=== PATIENT | male | born 1940 | race Caucasian/White ===

== ENCOUNTER 2022-05-07 13:13 | Emergency (ER) | payer MEDICARE ==
[~2022-05-07] VITALS: Ht 182 cm; Wt 80.0 kg
[2022-05-07 13:45] VITALS: BP 153/82
--- NOTE | 2022-05-07 14:02 | ED EENT ---
History of Present Illness General Chief Complaint: Laceration Stated Complaint: LT EAR WOUND Nursing Triage Note: Patient has presented to ER with cc of a wound behind his left ear oozing blood. He reports that yesterday he had a cancera area removed, he was told to change the dressing today. This morning when he changed the dressing the wound kept oozing blood. He came to ER for evaluation. He had a band aid over the wound with some blood under the dresing. Source: patient Exam Limitations: no limitations History of Present Illness Date Seen by Provider: May 07, 2022 Time Seen by Provider: 13:15 Initial Comments Patient is a 81-year-old male who presents with bleeding postsurgical left your wound. 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 Bleeding has subsequently stopped. Patient is not on aspirin or anticoagulation therapy. No other symptoms or complaints. Timing/Duration: abrupt Severity: mild Location: ear (L) Prearrival Treatment: other Modifying Factors: Improves With Other Allergies and Home Medications Patient Home Medication List Home Medication List Reviewed: Yes Review of Systems Review of Systems Constitutional: see HPI Ears: See HPI Past Ipsspie-Wdafko-Ubysay Hx Patient Social History Tobacco Use?: No Use of E-Cig and/or Vaping dev: No Substance use?: No Alcohol Use?: No Visual Acuity : Eye Location: Left Physical Exam Vital Signs Vital Signs - First Documented 05/07/22 13:45 Temp 36.2 Pulse 77 Resp 16 B/P (MAP) 153/82 (105) Pulse Ox 95 O2 Delivery Room Air Height, Weight, BMI Height: '" Weight: lbs. oz. kg; 24.00 BMI Method: General Appearance: no apparent distress Eyes: bilateral eye normal inspection, bilateral eye PERRL Ears: left ear auricle normal (Left upper inner earlobe, shallow surgical excision without active bleeding or evidence of infection), left ear bleeding, left ear discharge, left ear erythema, left ear foreign body, left ear swelling, left ear tenderness, left ear TM dull, left ear TM red, left ear TM bulging, left ear TM perforation, left ear other; bilateral ear canal normal, bilateral ear TM normal Progress/Results/Core Measures Results/Orders Vital Signs/I&O 05/07/22 13:45 Temp 36.2 Pulse 77 Resp 16 B/P (MAP) 153/82 (105) Pulse Ox 95 O2 Delivery Room Air Blood Pressure Mean: 105 Departure Communication (Admissions) Bleeding stopped prior to ED arrival. Patient reassured. Recommendations are watchful waiting and PCP follow-up as needed Impression Primary Impression: Abrasion of left ear Disposition: HOME, SELF-CARE Condition: Stable Departure-Patient Inst. Decision time for Depature: 14:01 Referrals: URBANO SCHULZ MD (PCP) Primary Care Physician Patient Instructions: Abrasions ED Add. Discharge Instructions: Please keep wound clean and dry and avoid bandage changes for the next 2 to 3 days. Follow-up with your surgeon as needed. All discharge instructions reviewed with patient and/or family. Voiced understanding. BARNEY HAWK DO May 07, 2022 14:02
== END 2022-05-07 14:08 | disposition home or self-care (01) ==
LOC: EDUNIT# 13:13 → ER FS 13:15
DX: S00.412A Abrasion of left ear, initial encounter (principal); Z48.817 Encounter for surgical aftercare following surgery on the skin and subcutaneous tissue; X58.XXXA Exposure to other specified factors, initial encounter

== ENCOUNTER 2022-09-18 16:23 | Emergency (ER) | payer MEDICARE ==
[~2022-09-18] VITALS: Ht 182.9 cm; Wt 79.4 kg
[2022-09-18 16:41] LABS: HEMATOCRIT 47 % (40-54); HEMOGLOBIN 15.5 g/dL (13.3-17.7); LYMPHOCYTES % (AUTO) 14 % (12-44); MEAN CORPUSCULAR HEMOGLOBIN 31 pg (25-34); MEAN CORPUSCULAR HGB CONC 33 g/dL (32-36); MEAN CORPUSCULAR VOLUME 93 fL (80-99); MEAN PLATELET VOLUME 9.6 fL (9.0-12.2); MONOCYTES % (AUTO) 4 % (0-12); NEUTROPHILS % (AUTO) 80 % (42-75); PLATELET COUNT 285 10^3/uL (130-400); WHITE BLOOD COUNT 15.3 10^3/uL (4.3-11.0)
[2022-09-18 16:42] LABS: BASOPHILS # (AUTO) 0.1 10^3/uL (0.0-0.1); BASOPHILS % (AUTO) 1 % (0-10); EOSINOPHILS # (AUTO) 0.2 10^3/uL (0.0-0.3); EOSINOPHILS % (AUTO) 2 % (0-10); LYMPHOCYTES # (AUTO) 2.2 X 10^3 (1.0-4.0); MONOCYTES # (AUTO) 0.6 X 10^3 (0.0-1.0); NEUTROPHILS # (AUTO) 12.2 X 10^3 (1.8-7.8)
[2022-09-18 16:45] LABS: CALCIUM 9.2 MG/DL (8.5-10.1); CREATININE SERUM 0.76 MG/DL (0.60-1.30); POTASSIUM 4.9 MMOL/L (3.6-5.0)
[2022-09-18 16:47] LABS: NEUTROPHILS % (MANUAL) 78 %
[2022-09-18 16:48] LABS: EOSINOPHILS % (MANUAL) 4 %; LYMPHOCYTES % (MANUAL) 15 %; MONOCYTES % (MANUAL) 3 %
--- NOTE | 2022-09-18 17:09 | ED GI ---
General Chief Complaint: Abdominal/GI Problems Nursing Triage Note: Patient brought to the ED by EMS for chief complaint of nausea/vomiting. Patient reports he got up to go to the bathroom, became nauseous, and sat down. EMS states patient vomited once en route to the ED. Source of Information: Patient Exam Limitations: No Limitations History of Present Illness Date Seen by Provider: Sep 18, 2022 Time Seen by Provider: 16:24 Initial Comments 82-year-old male presents to the emergency room today via EMS for nausea. He got up to go to the restroom and got a little lightheaded. He then had some nausea. He leaned against the wall and did not fall down. He called firefighters who had him up and about by the time the paramedics arrived. He decided to come to get checked out. He had a single episode of nausea and vomiting in the ambulance. He was given 4 mg Zofran IV and has had no recurrence of his symptoms. On arrival he states he feels better after he vom ited. He denies any abdominal pain or recent illnesses. No medication changes. No sick contacts. All other systems reviewed and negative except documented per HPI. Voice recognition software was used to help create this chart Allergies and Home Medications Allergies Coded Allergies: No Known Drug Allergies (Unverified , 09/18/22) Patient Home Medication List Home Medication List Reviewed: Yes Review of Systems Review of Systems Constitutional: see HPI Past Otmpkme-Mvjjgx-Cdumos Hx Patient Social History Tobacco Use?: No Substance use?: No Alcohol Use?: No Pt feels they are or have been: No Past Medical History Surgery/Hospitalization HX: asthma Family Medical History Reviewed Nursing Family Hx No Pertinent Family Hx Physical Exam Vital Signs Vital Signs - First Documented 09/18/22 16:33 Temp 36.9 Pulse 78 Resp 18 B/P (MAP) 163/69 (100) Pulse Ox 98 O2 Delivery Room Air Capillary Refill : Less Than 3 Seconds Height/Weight/BMI Height: '" Weight: lbs. oz. kg; 23.00 BMI Method: General Appearance: WD/WN, no apparent distress HEENT: normal ENT inspection, pharynx normal Neck: non-tender, supple Respiratory: chest non-tender, lungs clear, normal breath sounds, no respiratory distress, no accessory muscle use Cardiovascular: regular rate, rhythm, no murmur Gastrointestinal: normal bowel sounds, non tender, soft, no organomegaly, no pulsatile mass Extremities: normal range of motion, non-tender, normal inspection, no pedal edema, no calf tenderness Back: normal inspection, no CVA tenderness Neurologic/Psychiatric: alert, normal mood/affect, oriented x 3 Skin: normal color, warm/dry Progress/Results/Core Measures Results/Orders Lab Results Laboratory Tests Test 09/18/22 15:20 09/18/22 16:20 Range/Units Sodium Level 136 135-145 MMOL/L Potassium Level 4.9 3.6-5.0 MMOL/L Chloride Level 101 98-107 MMOL/L Carbon Dioxide Level 23 21-32 MMOL/L Anion Gap 12 5-14 MMOL/L Blood Urea Nitrogen 18 7-18 MG/DL Creatinine 0.76 0.60-1.30 MG/DL Estimat Glomerular Filtration Rate 90 BUN/Creatinine Ratio 24 Glucose Level 140 H 70-105 MG/DL Calcium Level 9.2 8.5-10.1 MG/DL White Blood Count 15.3 H 4.3-11.0 10^3/uL Red Blood Count 5.08 4.30-5.52 10^6/uL Hemoglobin 15.5 13.3-17.7 g/dL Hematocrit 47 40-54 % Mean Corpuscular Volume 93 80-99 fL Mean Corpuscular Hemoglobin 31 25-34 pg Mean Corpuscular Hemoglobin Concent 33 32-36 g/dL Red Cell Distribution Width 13.2 10.0-14.5 % Platelet Count 285 130-400 10^3/uL Mean Platelet Volume 9.6 9.0-12.2 fL Immature Granulocyte % (Auto) 0 % Neutrophils (%) (Auto) 80 H 42-75 % Lymphocytes (%) (Auto) 14 12-44 % Monocytes (%) (Auto) 4 0-12 % Eosinophils (%) (Auto) 2 0-10 % Basophils (%) (Auto) 1 0-10 % Neutrophils # (Auto) 12.2 H 1.8-7.8 X 10^3 Lymphocytes # (Auto) 2.2 1.0-4.0 X 10^3 Monocytes # (Auto) 0.6 0.0-1.0 X 10^3 Eosinophils # (Auto) 0.2 0.0-0.3 10^3/uL Basophils # (Auto) 0.1 0.0-0.1 10^3/uL Immature Granulocyte # (Auto) 0.1 0.0-0.1 10^3/uL Neutrophils % (Manual) 78 % Lymphocytes % (Manual) 15 % Monocytes % (Manual) 3 % Eosinophils % (Manual) 4 % My Orders Orders - ANDIE GOMEZ DO Basic Metabolic Panel (09/18/22 16:30) Cbc With Automated Diff (09/18/22 16:30) Manual Differential (09/18/22 16:20) Vital Signs/I&O 09/18/22 16:33 Temp 36.9 Pulse 78 Resp 18 B/P (MAP) 163/69 (100) Pulse Ox 98 O2 Delivery Room Air Blood Pressure Mean: 100 Departure Communication (Admissions) Patient is hemodynamically stable. He has no red flag symptoms. No abdominal pain. His white blood cell count is slightly elevated, nonspecific. He has no other evidence of infectious cause that would require antibiotics. No sepsis type symptoms with normal vital signs. He is discharged home in stable condition with supportive care and Zofran. Impression Primary Impression: Nausea and vomiting Qualified Codes: R11.2 - Nausea with vomiting, unspecified Disposition: HOME, SELF-CARE Condition: Stable Departure-Patient Inst. Referrals: URBANO SCHULZ MD (PCP) Primary Care Physician LUKAS CHEN MD (Family) Primary Care Physician Patient Instructions: Nausea and Vomiting, Adult (DC) Add. Discharge Instructions: You are seenI think you have a GI bug. There is no evidence for any cause at this time. Take the nausea medicine as prescribed as needed. Increase your fluids at home, rest. Return to the emergency department should your symptoms change in any way concerning to you. Follow-up with your primary doctor for any nonemergent needs All discharge instructions reviewed with patient and/or family. Voiced understanding. Scripts Ondansetron (Ondansetron Odt) 8 Mg Tab.rapdis 8 MG SL Q6H PRN for NAUSEA/VOMITING for 4 Days, #16 TAB Prov: ANDIE GOMEZ DO 09/18/22 ANDIE GOMEZ DO Sep 18, 2022 17:09
[2022-09-18] MEDS ORDERED: ONDA8TAB13 SL (17:13)
[2022-09-18 17:15] VITALS: BP 125/51
== END 2022-09-18 17:15 | disposition home or self-care (01) ==
LOC: EDUNIT# 16:23 → ER FS 16:28
DX: R11.2 Nausea with vomiting, unspecified (principal); D72.829 Elevated white blood cell count, unspecified
CPT/HCPCS: 36415; 80048; 85007; 85027

== ENCOUNTER 2023-01-23 18:48 | Emergency (ER) | payer MEDICARE ==
[~2023-01-23] VITALS: Ht 172.8 cm; Wt 79.4 kg
[~2023-01-23 18:48] MED LIST: ONDA8TAB13 SL
--- NOTE | 2023-01-23 19:00 | ED Cough/URI ---
General Stated Complaint: COUGH History of Present Illness Date Seen by Provider: Jan 23, 2023 Time Seen by Provider: 19:00 Initial Comments 82-year-old male who presents with cough, congestion, sneezing. Patient reports that he was seen 2 days ago at his primary care provider and diagnosed with viral illness feels like he is worsening. He reports that his neighbor was positive for COVID and he thinks he might have COVID. Patient complains of just minimal generalized malaise and just wants to feel better. Allergies and Home Medications Allergies Coded Allergies: No Known Drug Allergies (Unverified , 09/18/22) Patient Home Medication List Home Medication List Reviewed: Yes Azithromycin (Azithromycin) 250 Mg Tablet, 250 MG PO UD Prescribed by: TARIQ JUAREZ on 01/23/231942 Ondansetron (Ondansetron Odt) 8 Mg Tab.rapdis, 8 MG SL Q6H PRN for NAUSEA/VOMITING Prescribed by: ANDIE GOMEZ MD on 09/18/221712 Review of Systems Review of Systems Constitutional: chills, malaise Respiratory: cough Cardiovascular: no symptoms reported Gastrointestinal: No abdominal pain, No nausea, No vomiting Musculoskeletal: see HPI Skin: no symptoms reported Psychiatric/Neurological: No Symptoms Reported Hematologic/Lymphatic: No Symptoms Reported Past Gusgzua-Bbcqau-Bgcxyv Hx Past Medical History Surgery/Hospitalization HX: asthma Family Medical History No Pertinent Family Hx Physical Exam Capillary Refill : Height: '" Weight: lbs. oz. kg; 23.00 BMI Method: General Appearance: WD/WN, no apparent distress Neck: full range of motion, supple Respiratory: lungs clear, normal breath sounds, no respiratory distress Cardiovascular: normal peripheral pulses, regular rate, rhythm Gastrointestinal: non tender, soft Neurologic/Psychiatric: alert, normal mood/affect, oriented x 3 Skin: normal color, warm/dry Progress/Results/Core Measures Suspected Sepsis SIRS Temperature: Pulse: Respiratory Rate: Blood Pressure / Mean: Results/Orders Lab Results Laboratory Tests Test 01/23/23 18:57 Range/Units Influenza Type A (RT-PCR) Not Detected Not Detecte Influenza Type B (RT-PCR) Not Detected Not Detecte SARS-CoV-2 RNA (RT-PCR) Not Detected Not Detecte My Orders Orders - TARIQ JUAREZ DO Chest Pa/Lat (2 View) (01/23/23 19:03) Influenza A And B By Pcr (01/23/23 19:03) Covid 19 Inhouse Test (01/23/23 19:03) Vital Signs/I&O Capillary Refill : Progress Note : Progress Note Patient reports his symptoms are gone for 10 days and feels like to get worse. Patient is negative for influenza and COVID. Patient's chest x-ray shows no acute findings. Due to the symptoms began 10 days and feels like they are worsening we will start him on azithromycin. He should follow with her primary care provider in about a week to recheck his symptoms. He is stable and discharged Diagnostic Imaging Diagonstic Imaging: Xray Plain Films/CT/US/NM/MRI: chest Comments CHEST PA/LAT (2 VIEW) INDICATION: cough. COMPARISON: None. FINDINGS: Hiatal hernia. No focal consolidation or angela pulmonary edema. Aortic atherosclerosis. Emphysema. No pleural effusion or pneumothorax. Cardiac size is normal. Pulmonary vascularity is within normal limits. IMPRESSION: Emphysema. No focal consolidation or angela pulmonary edema. Departure Impression Primary Impression: Bronchitis Disposition: 01 HOME, SELF-CARE Condition: Stable Departure-Patient Inst. Referrals: URBANO SCHULZ MD (PCP) Primary Care Physician LUKAS CHEN MD (Family) Primary Care Physician Patient Instructions: Acute Bronchitis, Adult (DC) Add. Discharge Instructions: You may try honey and hot tea for the cough. Follow-up with your primary care provider 1 week for recheck of your symptoms. Please take your antibiotic as prescribed Scripts Azithromycin (Azithromycin) 250 Mg Tablet 250 MG PO UD, #6 TAB TAKE 2 TABLETS ON DAY ONE THEN TAKE 1 TABLET DAILY FOR FOUR MORE DAYS Prov: TARIQ JUAREZ DO 01/23/23 TARIQ JUAREZ DO Jan 23, 2023 19:00
--- NOTE | 2023-01-23 19:34 | Diagnostic Imaging Report ---
CHEST PA/LAT (2 VIEW) INDICATION: cough. COMPARISON: None. FINDINGS: Hiatal hernia. No focal consolidation or angela pulmonary edema. Aortic atherosclerosis. Emphysema. No pleural effusion or pneumothorax. Cardiac size is normal. Pulmonary vascularity is within normal limits. IMPRESSION: Emphysema. No focal consolidation or angela pulmonary edema. Hiatal hernia. Dictated by: Dictated on workstation # [id number]
[2023-01-23] MEDS ORDERED: AZIT250T12 PO (19:43)
[2023-01-23 19:51] VITALS: BP 137/35
== END 2023-01-23 19:51 | disposition home or self-care (01) ==
LOC: EDUNIT# 18:48 → ER FS 18:50
DX: J40 Bronchitis, not specified as acute or chronic (principal); Z20.822 Contact with and (suspected) exposure to COVID-19
CPT/HCPCS: 71046; 87636